=== PATIENT | female | born 1950 | race Caucasian/White ===

== ENCOUNTER 2016-11-03 15:21 | Emergency (ER) | payer OTHER ==
[~2016-11-03 15:21] MED LIST: ABILIFY; ADVAIR 100-501 EAC1 INH; ADVAIR 250-501 EAC1 IH; ADVAIR 250-501 EACH IH; ADVAIR 2501 DISK W/D; AFRIN3 ML; ALBUTEROL; ALBUTEROL 0.5ML INH; ALBUTEROL17 GM; ALLEGRA180 MG PO; BACTRIM DS TABL1 TA1 PO; BENZONATATE PO; BREO ELLIPTA 11 EACH; CELECOXIB200 MG PO; CICLOPIROX6.6 ML TP; CPAP; DELTASONE20 MG PO; ESOMEPRAZOLE MA20 MG; HCTZ; HCTZ PO; INDOCIN50 MG PO; INDOMETHACIN25 MG PO; KEFLEX500 MG PO; KENALOG IN ORABA5 GM TOP; KLONOPIN; LEVAQUIN750 MG; LISINOPRIL; LISINOPRIL PO; LORTAB 5/500 TA1 TA2 PO; MONTELUKAST SOD10 MG PO; NEXIUM PO; PEPCID PO; PREDNISONE PO; PRINIVIL40 MG PO; PROAIR HFA8.5 GM IH; PROAIR HFA8.5 GM INH; PROTONIX PO; PYRIDIUM100 MG PO; REQUIP0.25 MG PO; ROPINIROLE HCL0.5 MG PO; ROPINIROLE HCL1 MG PO; SINGULAIR PO; SYMBICORT INH; TUDORZA PRESS400 MCG IH; TYLOX 5-500 CA1 EACH PO; VIBRAMYCIN100 M1 PO; VICODIN 5/500 T1 TAB PO; ZITHROMAX PO; [UNRECOGNIZED DRUG - OTHER]
== END 2016-11-03 18:46 | disposition home or self-care (01) ==
LOC: CED 15:21
DX: L23.9 Allergic contact dermatitis, unspecified cause (principal); I10 Essential (primary) hypertension; J44.9 Chronic obstructive pulmonary disease, unspecified; J45.909 Unspecified asthma, uncomplicated; F17.200 Nicotine dependence, unspecified, uncomplicated
CPT/HCPCS: 82947; 99282